=== PATIENT | female | born 1995 | race Two or more races ===

== ENCOUNTER 2017-01-10 19:38 | Emergency (ER) | payer SELFPAY ==
[~2017-01-10 19:38] MED LIST: CEPH-264 PO
[2017-01-10 20:51] LABS: BILIRUBIN,URINE NEGATIVE (NEG); GLUCOSE,URINE NEGATIVE (NEG); NITRITE,URINE POSITIVE (NEG); PROTEIN,URINE NEGATIVE (NEG-TRACE)
[2017-01-10 21:00] LABS: BACTERIA,URINE MANY /HPF (0-FEW); RBC,URINE 0 /HPF (0-2); SQUAMOUS EPITHELIAL CELL,UR MOD /LPF
--- NOTE | 2017-01-10 21:00 | PHYS DOC ---
Past Medical History Past Medical History: No Pertinent History Past Surgical History: No Surgical History Additional Information: Nonsmoker Alcohol Use: None Drug Use: None Adult General Chief Complaint Chief Complaint: VAGINAL PROBLEM HPI HPI Patient is a 21 year old female who presents with low back pain and lower abdominal pain for 3 days. She also reports vaginal discharge. She denies fever , nausea, vomiting, diarrhea, constipation, dysuria, urinary frequency, or hematuria. LMP was 11/15/16. She has irregular menstrual cycles. She is sexually active and does not use condoms or take control. She denies concern for STDs. She is . She does not have a PCP. Review of Systems Review of Systems Constitutional: Denies fever or chills. [] Eyes: Denies change in visual acuity, redness, or eye pain. [] HENT: Denies ear pain, nasal congestion or sore throat. [] Respiratory: Denies cough or shortness of breath. [] Cardiovascular: Denies chest pain, palpitations or edema. [] GI: Denies nausea, vomiting, bloody stools or diarrhea. Reports lower abdominal pain. : Denies dysuria, hematuria or urinary frequency. Reports vaginal discharge. Musculoskeletal: Denies joint pain. Reports low-back pain. Integument: Denies rash or skin lesions. [] Neurologic: Denies headache, focal weakness or sensory changes. [] Endocrine: Denies polyuria or polydipsia. [] Psych: Denies anxiety or depression. [] All systems reviewed and negative unless otherwise stated in the HPI. Allergies Allergies Allergies Coded Allergies Type Severity Reaction Last Updated Verified No Known Drug Allergies 01/10/17 No Physical Exam Physical Exam Constitutional: Well developed, well nourished, no acute distress, non-toxic appearance. [] HENT: Normocephalic, atraumatic, oropharynx moist. [] Eyes: PERRLA, EOMI, conjunctiva normal, no discharge. [] Neck: Normal range of motion, no tenderness, supple, no stridor. [] Cardiovascular: Heart rate regular rhythm, no murmur. [] Lungs & Thorax: Bilateral breath sounds clear to auscultation without wheezes, rales, or rhonchi. [] Abdomen: Bowel sounds normal, soft, diffuse lower abdominal tenderness, no masses, no pulsatile masses. [] Female : ED RN present during exam. Normal external genitalia. There is mild clear discharge in the vagina. There is no cervicitis or CMT. There is no adnexal mass or tenderness. Skin: Warm, dry, no erythema, no rash. [] Back: No midline tenderness, no CVA tenderness. Bilateral lumbar paraspinal tenderness. Extremities: No tenderness, ROM intact, no edema. Distal pulses equal bilaterally. [] Neurologic: Alert and oriented X 3, normal motor function, normal sensory function, no focal deficits noted. [] Psychologic: Affect normal, judgement normal, mood normal. [] Current Patient Data Vital Signs Vital Signs Date Time Temp Pulse Resp B/P Pulse Ox O2 Delivery O2 Flow Rate FiO2 01/10/17 19:48 98.4 80 18 110/59 100 Room Air 98.4 Lab Values Laboratory Tests Test 01/10/17 19:45 Urine Collection Type Unknown Urine Color Yellow Urine Clarity Clear Urine pH 8.0 Urine Specific [place] 1.025 Urine Protein Negativemg/dL (NEG-TRACE) Urine Glucose (UA) Negativemg/dL (NEG) Urine Ketones (Stick) Negativemg/dL (NEG) Urine Blood Negative (NEG) Urine Nitrite Positive (NEG) Urine Bilirubin Negative (NEG) Urine Urobilinogen Dipstick 1.0mg/dL (0.2 mg/dL) Urine Leukocyte Esterase Small (NEG) Urine RBC 0/HPF (0-2) Urine WBC 1-4/HPF (0-4) Urine Squamous Epithelial Cells Mod/LPF Urine Bacteria Many/HPF (0-FEW) Urine Mucus Mod/LPF Microbiology 01/10/17 Wet Prep - Final, Complete WET PREP Final YEAST NONE SEEN TRICHOMONAS NONE SEEN CLUE CELLS NONE SEEN WBCS OCCASIONAL HCG negative EKG EKG [] Radiology/Procedures Radiology/Procedures [] Course & Med Decision Making Course & Med Decision Making Pertinent Labs and Imaging studies reviewed. (See chart for details) [] Dragon Disclaimer Dragon Disclaimer This electronic medical record was generated, in whole or in part, using a voice recognition dictation system. Departure Departure Impression: Primary Impression: UTI (urinary tract infection) Disposition: 01 HOME, SELF-CARE Condition: STABLE Referrals: NO PCP (PCP) Patient Instructions: Urinary Tract Infection, [id number] Additional Instructions: You were seen today for lower abdominal and lower back pain. Your urine shows a urinary tract infection. You pelvic exam did not show yeast or bacterial vaginosis. You were tested for gonorrhea and chlamydia today. You will receive a phone call if your test is positive. Please complete all of the prescribed antibiotic, even if you are feeling better. Please follow up with a primary care provider after completing the antibiotic to recheck your urine to be sure that the infection is gone. If you would like to begin control, [facility] for reduced fees for services. Return to the emergency department if you have any new or concerning symptoms. Scripts Sulfamethoxazole/Trimethoprim (Bactrim Ds Tablet)1 Each Tablet1 Tab PO BID 5 Days Prov:ZOILA IBRAHIM 01/10/17 Problem Qualifiers Primary Impression: UTI (urinary tract infection) Urinary tract infection type: acute cystitis Hematuria presence: without hematuria Qualified Code: N30.00 - Acute cystitis without hematuria ZOILA IBRAHIM Jan 10, 2017 21:00
[2017-01-10] MEDS ORDERED: SULF1TAB24 PO (21:48)
[2017-01-10 22:10] VITALS: BP 116/65
== END 2017-01-10 22:10 | disposition home or self-care (01) ==
LOC: ER 19:38 → MERGE 19:38 → ER 22:10
DX: N30.00 Acute cystitis without hematuria (principal)
CPT/HCPCS: 81001; 81025; 87086; 87491; 87591; 99284; Q0111

== ENCOUNTER 2017-07-20 21:22 | Emergency (ER) | payer SELFPAY ==
[~2017-07-20] VITALS: Ht 154.9 cm; Wt 61.2 kg
[~2017-07-20 21:22] MED LIST changes: +SULF1TAB24 PO
[2017-07-20 21:50] LABS: BILIRUBIN,URINE NEGATIVE (NEG); GLUCOSE,URINE NEGATIVE (NEG); NITRITE,URINE POSITIVE (NEG); PH,URINE 6.5; PROTEIN,URINE NEGATIVE (NEG-TRACE)
[2017-07-20 21:56] LABS: BACTERIA,URINE MANY /HPF (0-FEW); RBC,URINE 0 /HPF (0-2); SQUAMOUS EPITHELIAL CELL,UR MOD /LPF
[2017-07-20 22:09] LABS: BASO # 0.1 x10^3/uL (0.0-0.2); BASO % 1 % (0-3); EOS % 2 % (0-3); HEMATOCRIT 39.4 % (36.0-47.0); HEMOGLOBIN 13.1 g/dL (12.0-15.5); LYMPH # 2.4 x10^3/uL (1.0-4.8); LYMPH % 26 % (24-48); MEAN CORPUSCULAR HEMOGLOBIN 29 pg (25-35); MEAN CORPUSCULAR HGB CONC 33 g/dL (31-37); MEAN CORPUSCULAR VOLUME 86 fL (79-100); MONO % 7 % (0-9); NEUT % 63 % (31-73); PLATELET COUNT 317 x10^3/uL (140-400); RED BLOOD COUNT 4.58 x10^6/uL (3.50-5.40); WHITE BLOOD COUNT 9.2 x10^3/uL (4.0-11.0)
[2017-07-20 22:20] LABS: CREATININE 0.7 mg/dL (0.6-1.0); GFR 104.6
[2017-07-20 22:25] LABS: ALBUMIN 3.6 g/dL (3.4-5.0); ALBUMIN/GLOBULIN RATIO 0.8 (1.0-1.7); TOTAL BILIRUBIN 0.2 mg/dL (0.2-1.0)
--- NOTE | 2017-07-20 23:36 | PHYS DOC ---
Past Medical History Past Medical History: No Pertinent History Past Surgical History: No Surgical History Alcohol Use: None Drug Use: None Adult General Chief Complaint Chief Complaint: ABDOMINAL PAIN IN HPI HPI Patient is a 22 year old G4, P3 who presents with estimated a week gestation who presents with suprapubic pain for the past 4 days. Symptoms are rated mild to moderate. Patient denies urinary frequency urgency and dysuria. Reports vaginal discharge which is normal. Patient denies exposure concern for STD. No flank pain, history of kidney stones. Denies nausea or vomiting. No upper abdominal pain. No other acute symptoms or complaints. Not yet obtained care. Last menstrual period was approximately 10 weeks ago. Patient had a positive home test 3 weeks ago. Review of Systems Review of Systems Review symptoms as per history of present illness. All other review symptoms are negative. Allergies Allergies Allergies Coded Allergies Type Severity Reaction Last Updated Verified No Known Drug Allergies 08/29/16 No Physical Exam Physical Exam Constitutional: Well developed, well nourished, no acute distress, non-toxic appearance. [] HENT: Normocephalic, atraumatic, bilateral external ears normal, oropharynx moist, no oral exudates, nose normal. [] Eyes: PERRLA, EOMI, conjunctiva normal, no discharge. [] Neck: Normal range of motion, no tenderness, supple, no stridor. [] Cardiovascular:Heart rate regular rhythm, no murmur [] Lungs & Thorax: Bilateral breath sounds clear to auscultation [] Abdomen: Bowel sounds normal, soft, mild suprapubic pain,, tenderness.. [] : [External genitalia, normal, extremely discharge, no CMT, cervix closed. No bleeding or lesions.] Back: No tenderness, no CVA tenderness. [] Extremities: No tenderness, no cyanosis, no clubbing, ROM intact, no edema. [] Neurologic: Alert and oriented X 3, normal motor function, normal sensory function, no focal deficits noted. [] Psychologic: Affect normal, judgement normal, mood normal. [] Current Patient Data Vital Signs Vital Signs Date Time Temp Pulse Resp B/P (MAP) Pulse Ox O2 Delivery O2 Flow Rate FiO2 07/21/17 01:00 87 20 122/77 (92) 99 Room Air 07/20/17 21:35 98.0 98.0 Lab Values Laboratory Tests Test 07/20/17 20:52 07/20/17 21:40 07/20/17 22:00 POC Urine HCG, Qualitative Hcg positive (Negative) Urine Collection Type Unknown Urine Color Yellow Urine Clarity Clear Urine pH 6.5 Urine Specific [place] 1.015 Urine Protein Negative mg/dL (NEG-TRACE) Urine Glucose (UA) Negative mg/dL (NEG) Urine Ketones (Stick) Negative mg/dL (NEG) Urine Blood Negative (NEG) Urine Nitrite Positive (NEG) Urine Bilirubin Negative (NEG) Urine Urobilinogen Dipstick 1.0 mg/dL (0.2 mg/dL) Urine Leukocyte Esterase Trace (NEG) Urine RBC 0 /HPF (0-2) Urine WBC 1-4 /HPF (0-4) Urine Squamous Epithelial Cells Mod /LPF Urine Bacteria Many /HPF (0-FEW) Urine Mucus Mod /LPF White Blood Count 9.2 x10^3/uL (4.0-11.0) Red Blood Count 4.58 x10^6/uL (3.50-5.40) Hemoglobin 13.1 g/dL (12.0-15.5) Hematocrit 39.4 % (36.0-47.0) Mean Corpuscular Volume 86 fL (79-100) Mean Corpuscular Hemoglobin 29 pg (25-35) Mean Corpuscular Hemoglobin Concent 33 g/dL (31-37) Red Cell Distribution Width 14.0 % (11.5-14.5) Platelet Count 317 x10^3/uL (140-400) Neutrophils (%) (Auto) 63 % (31-73) Lymphocytes (%) (Auto) 26 % (24-48) Monocytes (%) (Auto) 7 % (0-9) Eosinophils (%) (Auto) 2 % (0-3) Basophils (%) (Auto) 1 % (0-3) Neutrophils # (Auto) 5.8 x10^3uL (1.8-7.7) Lymphocytes # (Auto) 2.4 x10^3/uL (1.0-4.8) Monocytes # (Auto) 0.7 x10^3/uL (0.0-1.1) Eosinophils # (Auto) 0.2 x10^3/uL (0.0-0.7) Basophils # (Auto) 0.1 x10^3/uL (0.0-0.2) Maternal Serum HCG Beta Subunit 367007 mIU/mL (0-5) H Sodium Level 138 mmol/L (136-145) Potassium Level 4.0 mmol/L (3.5-5.1) Chloride Level 102 mmol/L (98-107) Carbon Dioxide Level 25 mmol/L (21-32) Anion Gap 11 (6-14) Blood Urea Nitrogen 6 mg/dL (7-20) L Creatinine 0.7 mg/dL (0.6-1.0) Estimated GFR (Cockcroft-Gault) 104.6 BUN/Creatinine Ratio 9 (6-20) Glucose Level 96 mg/dL (70-99) Calcium Level 9.0 mg/dL (8.5-10.1) Total Bilirubin 0.2 mg/dL (0.2-1.0) Aspartate Amino Transferase (AST) 13 U/L (15-37) L Alanine Aminotransferase (ALT) 19 U/L (14-59) Alkaline Phosphatase 70 U/L (46-116) Total Protein 8.0 g/dL (6.4-8.2) Albumin 3.6 g/dL (3.4-5.0) Albumin/Globulin Ratio 0.8 (1.0-1.7) L Laboratory Tests 07/20/17 22:00 Laboratory Tests 07/20/17 22:00 Microbiology 07/20/17 Wet Prep - Final, Complete EKG EKG [] Radiology/Procedures Radiology/Procedures [OB ultrasound: Viable 9 week 1 day IUP, possible area of subchorionic hemorrhage.] Course & Med Decision Making Course & Med Decision Making Pertinent Labs and Imaging studies reviewed. (See chart for details) [Pelvic pain in possible subchorionic hemorrhage causing patient's symptoms. Recommend supportive care OB follow-up. Return precautions reviewed] Dragon Disclaimer Dragon Disclaimer This electronic medical record was generated, in whole or in part, using a voice recognition dictation system. Departure Departure Impression: Primary Impression: Abdominal pain during in first trimester Condition: GOOD Referrals: NO PCP (PCP) JS AVENDANO DO Jul 20, 2017 23:36
--- NOTE | 2017-07-20 23:59 | RAD ---
Examination: Obstetric ultrasound. HISTORY: History of cramping COMPARISON: None available FINDINGS: The uterus measures 11.3 x 8.1 x 6.0 cm. Cervical length measures 3.8 cm. The right ovary measures 2.7 x 2.7 x 1.2 cm. The left ovary measures 2.4 x 2.8 x 0.9 cm. Blood flow identified in the right and left ovaries. Intrauterine gestational sac identified. pole identified within the gestation sac with heart rate of 171 bpm The crown-rump length measures 2.5 cm corresponding to 9 weeks and 1 day. 2.5 cm heterogeneous density identified in the subchorionic region likely a small subchorionic bleed. LMP 05/08/2017 Clinical age 10 weeks and 3 days with expected date of delivery by LMP 02/12/2018. Ultrasound age is 9 weeks and 1 day with expected date of delivery by ultrasound 02/21/2018. IMPRESSION: 1. Single living intrauterine with heart rate of 171 bpm. 2. 2.5 cm heterogeneous echogenicity identified in the subchorionic region probably small subchorionic bleed. Electronically signed by: Ulises Schwartz MD (07/20/2017 11:56 PM) [facility]
[2017-07-21 01:00] VITALS: BP 122/77
--- NOTE | 2017-07-24 10:09 | VNOTE ---
CALL BACK NOTE CALL BACK Microbiology 07/20/17 Wet Prep - Final, Complete 07/20/17 Urine Culture - Final, Complete 07/20/17 Urine Culture Result 1 (ELKE) - Final, Complete 07/20/17 Antimicrobic Susceptibility - Final, Complete Attempted to contact patient at phone number [phone] to patient's urine was positive for Escherichia coli. She was covered with any antibiotics patient is . This Macrobid 100 mg 1 tablet twice day for the next 7 days was going to be prescribed to the patient however she has a voicemail box that has not been set up yet. This information will be provided to the charge nurse, KRYSTIN Gerard. I did not see or treat this patient. I am signing this note administratively. KIMBERLEY REDDING APRN Jul 24, 2017 10:09 CY BRITO MD Jul 25, 2017 07:52
--- NOTE | 2017-07-26 11:48 | VNOTE ---
CALL BACK NOTE CALL BACK Microbiology 07/20/17 Wet Prep - Final, Complete 07/20/17 Urine Culture - Final, Complete 07/20/17 Urine Culture Result 1 (ELKE) - Final, Complete 07/20/17 Antimicrobic Susceptibility - Final, Complete Attempted to contact patient at [phone]. Patient's STD was positive for chlamydia. She was not treated here in the emergency department. Patient is . She will need to have Zithromax called and once we are able to obtain information. Culture results will be passed on to the charge nurse, KRYSTIN Tapia. KIMBERLEY REDDING APRN Jul 26, 2017 11:48
== END 2017-07-21 01:00 | disposition home or self-care (01) ==
LOC: ER 21:22
DX: O26.891 Other specified pregnancy related conditions, first trimester (principal); R10.30 Lower abdominal pain, unspecified; N89.8 Other specified noninflammatory disorders of vagina; Z3A.09 9 weeks gestation of pregnancy
CPT/HCPCS: 36415; 76801; 80053; 81001; 81025; 84702; 85025; 87086; 99285; Q0111; 87186; 87491; 87591

== ENCOUNTER 2017-08-29 19:44 | Emergency (ER) | payer SELFPAY ==
[~2017-08-29] VITALS: Ht 157.5 cm; Wt 61.2 kg
--- NOTE | 2017-08-29 19:54 | PHYS DOC ---
Past Medical History Past Medical History: No Pertinent History Past Surgical History: No Surgical History Alcohol Use: None Drug Use: None Adult General Chief Complaint Chief Complaint: ABDOMINAL PAIN HPI HPI Patient is a 22 year old female who presents with child bleeding with . She states she's approximate 14 weeks she has not had any care as of yet. She was in [place] and 3 days ago she started having back pain and then the She started having bleeding. She states is less than her normal period but is still going on. She came back from [place] today and presents to ER. She denies any fevers chills. She is a G 4 P 3 Review of Systems Review of Systems Constitutional: Denies fever or chills [] Eyes: Denies change in visual acuity, redness, or eye pain [] HENT: Denies nasal congestion or sore throat [] Respiratory: Denies cough or shortness of breath [] Cardiovascular: No additional information not addressed in HPI [] GI: Denies abdominal pain, nausea, vomiting, bloody stools or diarrhea [] : Denies dysuria or hematuria [] Musculoskeletal: Denies back pain or joint pain [] Integument: Denies rash or skin lesions [] Neurologic: Denies headache, focal weakness or sensory changes [] Endocrine: Denies polyuria or polydipsia [] Current Medications Current Medications Current Medications Medications (Trade) Dose Ordered Sig/[facility] Start Time Stop Time Status Last Admin Dose Admin Morphine Sulfate 2 mg 1X ONCE 08/29/17 22:00 08/29/17 22:01 DC 08/29/17 22:06 2 MG Potassium Chloride (Klor-Con) 40 meq 1X ONCE 08/29/17 23:00 08/29/17 23:01 DC 08/29/17 22:51 40 MEQ Allergies Allergies Allergies Coded Allergies Type Severity Reaction Last Updated Verified No Known Drug Allergies 08/29/16 No Physical Exam Physical Exam Constitutional: Well developed, well nourished, no acute distress, non-toxic appearance. [] HENT: Normocephalic, atraumatic, bilateral external ears normal, oropharynx moist, no oral exudates, nose normal. [] Eyes: PERRLA, EOMI, conjunctiva normal, no discharge. [] Neck: Normal range of motion, no tenderness, supple, no stridor. [] Cardiovascular:Heart rate regular rhythm, no murmur [] Lungs & Thorax: Bilateral breath sounds clear to auscultation [] Abdomen/pelvic exam: Bowel sounds normal, soft, no tenderness, no masses, no pulsatile masses. Pelvic Exam: Pst Specialist present Abdomen: Nontender External Genitalia: Normal Skin Speculum: Normal vaginal mucosa, minimal blood in the vault Bimanual: No adnexal masses or tenderness, No CMT Skin: Warm, dry, no erythema, no rash. [] Back: No tenderness, no CVA tenderness. [] Extremities: No tenderness, no cyanosis, no clubbing, ROM intact, no edema. [] Neurologic: Alert and oriented X 3, normal motor function, normal sensory function, no focal deficits noted. [] Psychologic: Affect normal, judgement normal, mood normal. [] Current Patient Data Vital Signs Vital Signs Date Time Temp Pulse Resp B/P (MAP) Pulse Ox O2 Delivery O2 Flow Rate FiO2 08/29/17 22:06 99 Room Air 08/29/17 20:00 98.7 120 20 125/70 (88) 98.7 Lab Values Laboratory Tests Test 08/29/17 19:50 08/29/17 20:10 08/29/17 20:11 Urine Collection Type Unknown Urine Color Yellow Urine Clarity Cloudy Urine pH 6.0 Urine Specific [place] 1.015 Urine Protein Negative mg/dL (NEG-TRACE) Urine Glucose (UA) Negative mg/dL (NEG) Urine Ketones (Stick) Negative mg/dL (NEG) Urine Blood Large (NEG) Urine Nitrite Negative (NEG) Urine Bilirubin Negative (NEG) Urine Urobilinogen Dipstick 0.2 mg/dL (0.2 mg/dL) Urine Leukocyte Esterase Small (NEG) Urine RBC 3-5 /HPF (0-2) Urine WBC 1-4 /HPF (0-4) Urine Squamous Epithelial Cells Mod /LPF Urine Bacteria Moderate /HPF (0-FEW) Urine Mucus Marked /LPF White Blood Count 9.1 x10^3/uL (4.0-11.0) Red Blood Count 3.87 x10^6/uL (3.50-5.40) Hemoglobin 11.3 g/dL (12.0-15.5) L Hematocrit 33.2 % (36.0-47.0) L Mean Corpuscular Volume 86 fL (79-100) Mean Corpuscular Hemoglobin 29 pg (25-35) Mean Corpuscular Hemoglobin Concent 34 g/dL (31-37) Red Cell Distribution Width 13.2 % (11.5-14.5) Platelet Count 290 x10^3/uL (140-400) Neutrophils (%) (Auto) 68 % (31-73) Lymphocytes (%) (Auto) 24 % (24-48) Monocytes (%) (Auto) 5 % (0-9) Eosinophils (%) (Auto) 1 % (0-3) Basophils (%) (Auto) 1 % (0-3) Neutrophils # (Auto) 6.2 x10^3uL (1.8-7.7) Lymphocytes # (Auto) 2.2 x10^3/uL (1.0-4.8) Monocytes # (Auto) 0.5 x10^3/uL (0.0-1.1) Eosinophils # (Auto) 0.1 x10^3/uL (0.0-0.7) Basophils # (Auto) 0.1 x10^3/uL (0.0-0.2) Prothrombin Time 12.3 SEC (11.7-14.0) Prothrombin Time INR 1.0 (0.8-1.1) PTT 29 SEC (24-38) Maternal Serum HCG Beta Subunit 4562 mIU/mL (0-5) H Sodium Level 141 mmol/L (136-145) Potassium Level 3.1 mmol/L (3.5-5.1) L Chloride Level 105 mmol/L (98-107) Carbon Dioxide Level 26 mmol/L (21-32) Anion Gap 10 (6-14) Blood Urea Nitrogen 6 mg/dL (7-20) L Creatinine 0.6 mg/dL (0.6-1.0) Estimated GFR (Cockcroft-Gault) 125.0 Glucose Level 87 mg/dL (70-99) Calcium Level 9.1 mg/dL (8.5-10.1) POC Urine HCG, Qualitative Hcg positive (Negative) Laboratory Tests 08/29/17 20:10 Laboratory Tests 08/29/17 20:10 Microbiology 08/29/17 Wet Prep - Final, Complete Laboratory Tests Test 08/29/17 19:50 08/29/17 20:10 08/29/17 20:11 Urine Collection Type Unknown Urine Color Yellow Urine Clarity Cloudy Urine pH 6.0 Urine Specific [place] 1.015 Urine Protein Negative mg/dL (NEG-TRACE) Urine Glucose (UA) Negative mg/dL (NEG) Urine Ketones (Stick) Negative mg/dL (NEG) Urine Blood Large (NEG) Urine Nitrite Negative (NEG) Urine Bilirubin Negative (NEG) Urine Urobilinogen Dipstick 0.2 mg/dL (0.2 mg/dL) Urine Leukocyte Esterase Small (NEG) Urine RBC 3-5 /HPF (0-2) Urine WBC 1-4 /HPF (0-4) Urine Squamous Epithelial Cells Mod /LPF Urine Bacteria Moderate /HPF (0-FEW) Urine Mucus Marked /LPF White Blood Count 9.1 x10^3/uL (4.0-11.0) Red Blood Count 3.87 x10^6/uL (3.50-5.40) Hemoglobin 11.3 g/dL (12.0-15.5) L Hematocrit 33.2 % (36.0-47.0) L Mean Corpuscular Volume 86 fL (79-100) Mean Corpuscular Hemoglobin 29 pg (25-35) Mean Corpuscular Hemoglobin Concent 34 g/dL (31-37) Red Cell Distribution Width 13.2 % (11.5-14.5) Platelet Count 290 x10^3/uL (140-400) Neutrophils (%) (Auto) 68 % (31-73) Lymphocytes (%) (Auto) 24 % (24-48) Monocytes (%) (Auto) 5 % (0-9) Eosinophils (%) (Auto) 1 % (0-3) Basophils (%) (Auto) 1 % (0-3) Neutrophils # (Auto) 6.2 x10^3uL (1.8-7.7) Lymphocytes # (Auto) 2.2 x10^3/uL (1.0-4.8) Monocytes # (Auto) 0.5 x10^3/uL (0.0-1.1) Eosinophils # (Auto) 0.1 x10^3/uL (0.0-0.7) Basophils # (Auto) 0.1 x10^3/uL (0.0-0.2) Prothrombin Time 12.3 SEC (11.7-14.0) Prothrombin Time INR 1.0 (0.8-1.1) PTT 29 SEC (24-38) Maternal Serum HCG Beta Subunit 4562 mIU/mL (0-5) H Sodium Level 141 mmol/L (136-145) Potassium Level 3.1 mmol/L (3.5-5.1) L Chloride Level 105 mmol/L (98-107) Carbon Dioxide Level 26 mmol/L (21-32) Anion Gap 10 (6-14) Blood Urea Nitrogen 6 mg/dL (7-20) L Creatinine 0.6 mg/dL (0.6-1.0) Estimated GFR (Cockcroft-Gault) 125.0 Glucose Level 87 mg/dL (70-99) Calcium Level 9.1 mg/dL (8.5-10.1) POC Urine HCG, Qualitative Hcg positive (Negative) Laboratory Tests 08/29/17 20:10 Laboratory Tests 08/29/17 20:10 Microbiology 08/29/17 Wet Prep - Final, Complete EKG EKG [] Radiology/Procedures Radiology/Procedures RUN DATE: 08/29/17 PAGE 1 RUN TIME: 2113 [facility] [address] [place] [address] Son Lemus M.D., Designated Broker PATIENT: MATY PERDOMO ACCT: [id number] LOC: JENNIFER U : [id number] AGE/SX: ROOM: REG : 08/29/[address]: DESTINY FIGUEROA MD : 1995 BED: DIS : STATUS: REG ER TLOC: SPEC #: [id number] VILLA: 08/29/17 STATUS: COMP REQ #: [id number] RECD: 08/29/[address]: DESTINY FIGUEROA MD SOURCE: VAGINAL ENTR: 08/29/[address]: JUAN JOSE FINN SPDESC: ORDERED: WET PREP COMMENTS: Has specimen been collected/obtained? Y Procedure Result WET PREP Final YEAST NONE SEEN TRICHOMONAS NONE SEEN CLUE CELLS CLUE CELLS PRESENT WBCS FEW [facility] [address] [place] [address] IMAGING REPORT Signed PATIENT: MATY PERDOMO ACCOUNT: [id number] : 1995 LOCATION: ER AGE: 22 SEX: F EXAM STATUS: REG ER ORD. PHYSICIAN: DESTINY FIGUEROA MD REASON: vaginal bleeding PROCEDURE: OB < 14 WKS Early OB ultrasound History: Vaginal bleeding. Possible miscarriage. Comparison: Ultrasound OB July 20, 2017. Technique: Transabdominal imaging was performed. Findings: No intrauterine is identified. Uterus measures 10.3 cm in length. The endometrium is thickened and heterogeneous measuring up to 32 mm in thickness. Left ovary measures 2.7 x 1.3 x 1.3 cm and is unremarkable. Right ovary measures 3.1 x 2.6 x 2.2 cm and is unremarkable. Both ovaries demonstrate normal vascular flow upon Doppler interrogation and are without evidence of torsion. No adnexal masses are seen. Impression: 1. No intrauterine is identified. As previous study demonstrated intrauterine , findings would indicate a completed spontaneous . 2. Endometrium is thickened and heterogeneous. Although nonspecific, findings may indicate products of conception. Electronically signed by: Misha Ruelas MD (08/29/2017 10:23 PM) [facility] DICTATED and SIGNED BY: MISHA RUELAS MD DATE: 08/29/172219 CC: DESTINY FIGUEROA MD; NO PCP ~ Impressions: Miscarriage UTI Hypokalemia Course & Med Decision Making Course & Med Decision Making Pertinent Labs and Imaging studies reviewed. (See chart for details) Ultrasound indicates spontaneous miscarriage. Her quantitative does not match her dates therefore she has likely miscarried. She will need to follow-up with Dr. Pope. Her potassium was replaced and she's been discharged with Keflex 500 mg every 6 hours 10 days, since she can't afford Macrobid. She is to follow -up with Dr. Pope within next 4-5 days. Return precautions given for increasing vaginal bleeding, discharge, other concerns. Dragon Disclaimer Dragon Disclaimer This electronic medical record was generated, in whole or in part, using a voice recognition dictation system. Departure Departure Impression: Primary Impression: UTI (urinary tract infection) Additional Impression: Miscarriage Disposition: HOME, SELF-CARE Condition: STABLE Referrals: NO PCP (PCP) TRICIA POPE DO Patient Instructions: Miscarriage Additional Instructions: The ultrasound appears that you've miscarried. You will need to follow-up with MOVING PICTURE OPERATOR. Please call Dr. Pope's office and schedule follow-up appointment. Your potassium was slightly low and this was replaced. You'll also have a bladder infection when you will need to take antibiotics for the next 10 days. If you develop severe abdominal pain, increased vaginal bleeding, lightheadedness, dizziness, or other concerns please return back to emergency department. Scripts Nitrofurantoin Monohyd/M-Cryst (MACROBID 100 MG CAPSULE) 100 Mg Capsule 1 CAP PO BID, #20 CAP Prov: DESTINY FIGUEROA MD 08/29/17 Problem Qualifiers Primary Impression: UTI (urinary tract infection) Urinary tract infection type: acute cystitis Hematuria presence: without hematuria Qualified Codes: N30.00 - Acute cystitis without hematuria DESTINY FIGUEROA MD Aug 29, 2017 19:54
[2017-08-29 20:16] LABS: BILIRUBIN,URINE NEGATIVE (NEG); GLUCOSE,URINE NEGATIVE (NEG); NITRITE,URINE NEGATIVE (NEG); PROTEIN,URINE NEGATIVE (NEG-TRACE); UROBILINOGEN,URINE 0.2 mg/dL (0.2 mg/dL)
[2017-08-29 20:26] LABS: BACTERIA,URINE MODERATE /HPF (0-FEW); SQUAMOUS EPITHELIAL CELL,UR MOD /LPF
[2017-08-29 20:26] LABS: BASO # 0.1 x10^3/uL (0.0-0.2); BASO % 1 % (0-3); EOS % 1 % (0-3); HEMATOCRIT 33.2 % (36.0-47.0); HEMOGLOBIN 11.3 g/dL (12.0-15.5); LYMPH # 2.2 x10^3/uL (1.0-4.8); LYMPH % 24 % (24-48); MEAN CORPUSCULAR HEMOGLOBIN 29 pg (25-35); MEAN CORPUSCULAR HGB CONC 34 g/dL (31-37); MEAN CORPUSCULAR VOLUME 86 fL (79-100); MONO % 5 % (0-9); NEUT % 68 % (31-73); PLATELET COUNT 290 x10^3/uL (140-400); RED BLOOD COUNT 3.87 x10^6/uL (3.50-5.40); RED CELL DISTRIBUTION WIDTH 13.2 % (11.5-14.5); WHITE BLOOD COUNT 9.1 x10^3/uL (4.0-11.0)
[2017-08-29 20:35] LABS: PROTHROMBIN TIME PATIENT 12.3 SEC (11.7-14.0)
[2017-08-29 20:38] LABS: CALCIUM 9.1 mg/dL (8.5-10.1); CREATININE 0.6 mg/dL (0.6-1.0); POTASSIUM 3.1 mmol/L (3.5-5.1)
[2017-08-29] MEDS ORDERED: MORPHINE SULFATE 2 MG/ML DISP.SYRIN. IV ONE (22:00)
--- NOTE | 2017-08-29 22:27 | RAD ---
Early OB ultrasound History: Vaginal bleeding. Possible miscarriage. Comparison: Ultrasound OB July 20, 2017. Technique: Transabdominal imaging was performed. Findings: No intrauterine is identified. Uterus measures 10.3 cm in length. The endometrium is thickened and heterogeneous measuring up to 32 mm in thickness. Left ovary measures 2.7 x 1.3 x 1.3 cm and is unremarkable. Right ovary measures 3.1 x 2.6 x 2.2 cm and is unremarkable. Both ovaries demonstrate normal vascular flow upon Doppler interrogation and are without evidence of torsion. No adnexal masses are seen. Impression: 1. No intrauterine is identified. As previous study demonstrated intrauterine , findings would indicate a completed spontaneous . 2. Endometrium is thickened and heterogeneous. Although nonspecific, findings may indicate products of conception. Electronically signed by: Misha Sandra MD (08/29/2017 10:23 PM) [facility]
[2017-08-29] MEDS ORDERED: NITR100C62 PO (22:44)
[2017-08-29 23:00] VITALS: BP 116/61
[2017-08-29] MEDS ORDERED: POTASSIUM CHLORIDE 20 MEQ TABLET.ER. PO ONE (23:00)
== END 2017-08-29 23:30 | disposition home or self-care (01) ==
LOC: ER 19:44
DX: O03.9 Complete or unspecified spontaneous abortion without complication (principal); N30.00 Acute cystitis without hematuria; E87.6 Hypokalemia; Z3A.14 14 weeks gestation of pregnancy
CPT/HCPCS: 36415; 76801; 80048; 81001; 81025; 84702; 85025; 85610; 85730; 86900; 86901; 87086; 87491; 87591; 96374; 99285; J2270; Q0111

== ENCOUNTER 2018-03-21 20:36 | Emergency (ER) | payer OTHER ==
[2018-03-21 21:01] LABS: URINE HCG POC HCG NEGATIVE (Negative)
[2018-03-21 21:03] LABS: BILIRUBIN,URINE NEGATIVE (NEG); CLARITY,URINE CLEAR; COLOR,URINE YELLOW; GLUCOSE,URINE NEGATIVE (NEG); NITRITE,URINE NEGATIVE (NEG); PH,URINE 5.5; PROTEIN,URINE NEGATIVE (NEG-TRACE); UROBILINOGEN,URINE 0.2 mg/dL (0.2 mg/dL)
[2018-03-21 21:12] LABS: BACTERIA,URINE MOD /HPF (0-FEW); RBC,URINE 0 /HPF (0-2); SQUAMOUS EPITHELIAL CELL,UR MANY /LPF; WBC,URINE >40 /HPF (0-4); YEAST,URINE PRESENT /HPF
== END 2018-03-21 21:45 | disposition home or self-care (01) ==
LOC: ER 20:36
DX: N39.0 Urinary tract infection, site not specified (principal); B37.9 Candidiasis, unspecified
CPT/HCPCS: 81001; 81025; 87491; 87591; 99284

== ENCOUNTER 2018-06-03 22:10 | Emergency (ER) | payer OTHER ==
[2018-06-03 22:50] LABS: BILIRUBIN,URINE NEGATIVE (NEG); CLARITY,URINE CLEAR; COLOR,URINE YELLOW; GLUCOSE,URINE NEGATIVE (NEG); NITRITE,URINE NEGATIVE (NEG); PH,URINE 5.5; PROTEIN,URINE NEGATIVE (NEG-TRACE); UROBILINOGEN,URINE 0.2 mg/dL (0.2 mg/dL)
[2018-06-03 22:57] LABS: BACTERIA,URINE MANY /HPF (0-FEW); RBC,URINE 0 /HPF (0-2); SQUAMOUS EPITHELIAL CELL,UR MOD /LPF
[2018-06-03] MEDS: cefTRIAXone IM 250 MG VIAL IM (23:34)
[2018-06-03] MEDS: AZITHROMYCIN 250 MG TABLET. PO (23:35)
[2018-06-05 14:37] LABS: CHLAMYDIA PROBE Negative (Negative); GC PROBE Negative (Negative)
== END 2018-06-03 23:49 | disposition home or self-care (01) ==
LOC: ER 22:10
DX: N30.00 Acute cystitis without hematuria (principal); R10.2 Pelvic and perineal pain
CPT/HCPCS: 81001; 87086; 87491; 87591; 96372; 99284-25; J0696; Q0111; Q0144

== ENCOUNTER 2018-10-09 20:58 | Emergency (ER) | payer SELFPAY ==
[2018-06-03 22:20] VITALS: BP 118/55
[~2018-10-09] VITALS: Ht 154.9 cm; Wt 63.5 kg
[~2018-10-09 20:58] MED LIST changes: +FLUC150T PO; +NITR100C62 PO; +PHEN-318 PO
[2018-10-09] MEDS ORDERED: DOXY100T9 PO (23:30)
--- NOTE | 2018-10-09 23:31 | PHYS DOC ---
Past Medical History Past Medical History: Seizure Past Surgical History: No Surgical History Alcohol Use: Occasionally Drug Use: None Adult General Chief Complaint Chief Complaint: FOREIGN BODY VAGINA HPI HPI Patient is a 23 year old female who presents with all a tampon stuck in her vaginal canal for 2 days. Patient states she started to have a foul smelling odor and having some low mid abdominal pain. Patient denies vaginal discharge or bleeding. Review of Systems Review of Systems Constitutional: Denies fever or chills [] Eyes: Denies change in visual acuity, redness, or eye pain [] HENT: Denies nasal congestion or sore throat [] Respiratory: Denies cough or shortness of breath [] Cardiovascular: No additional information not addressed in HPI [] GI: Low mid abdominal pain. Denies nausea, vomiting, bloody stools or diarrhea [ ] : Tampon stuck in vaginal canal 2 days. Denies dysuria or hematuria [] Musculoskeletal: Denies back pain or joint pain [] Integument: Denies rash or skin lesions [] Neurologic: Denies headache, focal weakness or sensory changes [] Endocrine: Denies polyuria or polydipsia [] All other systems were reviewed and found to be within normal limits, except as documented in this note. Allergies Allergies Allergies Coded Allergies Type Severity Reaction Last Updated Verified No Known Drug Allergies 08/29/16 No Physical Exam Physical Exam Constitutional: Well developed, well nourished, no acute distress, non-toxic appearance. [] HENT: Normocephalic, atraumatic, bilateral external ears normal, oropharynx moist, no oral exudates, nose normal. [] Eyes: PERRLA, EOMI, conjunctiva normal, no discharge. [] Neck: Normal range of motion, no tenderness, supple, no stridor. [] Cardiovascular:Heart rate regular rhythm, no murmur [] Lungs & Thorax: Bilateral breath sounds clear to auscultation [] Abdomen: Bowel sounds normal, soft, low mid tenderness, no masses, no pulsatile masses. [] Skin: Warm, dry, no erythema, no rash. [] Back: No tenderness, no CVA tenderness. [] Extremities: No tenderness, no cyanosis, no clubbing, ROM intact, no edema. [] Neurologic: Alert and oriented X 3, normal motor function, normal sensory function, no focal deficits noted. [] Psychologic: Affect normal, judgement normal, mood normal. [] Current Patient Data Lab Values Laboratory Tests Test 10/09/18 22:28 POC Urine HCG, Qualitative Hcg negative (Negative) EKG EKG [] Radiology/Procedures Radiology/Procedures [] Course & Med Decision Making Course & Med Decision Making Patient is a 23 year old female who presents with all a tampon stuck in her vaginal canal for 2 days. Patient states she started to have a foul smelling odor and having some low mid abdominal pain. Patient denies vaginal discharge or bleeding. Patient denies any nausea or vomiting. Denies any dysuria. Abdomen is soft and slightly tender with palpation to low mid abdomen. A pelvic exam is done and a tampon is removed. The patient's cervical os is reddened but there is no bleeding. Patient has no cervical motion tenderness. Patient states all the pain is gone once I removed the tampon. Patient is placed on doxycycline antibiotic and to follow-up with her primary care if needed. Afebrile. Pelvic Exam: Solutions Executive [employer] present Abdomen: Nontender External Genitalia: Normal Skin Speculum: Tampon in place, Normal vaginal mucosa, normal cervical discharge Bimanual: No adnexal masses or tenderness, No CMT Dragon Disclaimer Dragon Disclaimer This electronic medical record was generated, in whole or in part, using a voice recognition dictation system. Departure Departure Impression: Primary Impression: Foreign body in vagina Disposition: 01 HOME, SELF-CARE Condition: STABLE Referrals: NO PCP (PCP) Patient Instructions: Vaginal Foreign Body-Brief Additional Instructions: Follow up with your primary care if needed. Take antibiotic as prescribed. Scripts Doxycycline Hyclate (DOXYCYCLINE HYCLATE) 100 Mg Tablet. 1 TAB PO BID, #14 TAB Prov: KIMBERLEY KUMAR APRN 10/09/18 Attending Signature Attending Signature I have reviewed the PA/LEAF TINNER's note and plan of care. I was available for consultation as needed during the patient's visit in the emergency department. I agree with the clinical impression, plan, and disposition. Problem Qualifiers Primary Impression: Foreign body in vagina Encounter type: initial encounter Qualified Codes: T19.2XXA - Foreign body in vulva and vagina, initial encounter KIMBERLEY KUMAR APRN Oct 09, 2018 23:31 SNEHA SHAH DO Oct 10, 2018 02:12
== END 2018-10-09 23:35 | disposition home or self-care (01) ==
LOC: ER 20:58
DX: T19.2XXA Foreign body in vulva and vagina, initial encounter (principal); X58.XXXA Exposure to other specified factors, initial encounter; Y93.89 Activity, other specified; Y92.89 Other specified places as the place of occurrence of the external cause; Y99.8 Other external cause status
CPT/HCPCS: 81025; 99284

== ENCOUNTER 2019-11-02 19:36 | Emergency (ER) | payer OTHER ==
[2018-06-03 22:20] VITALS: BP 118/55
[~2019-11-02] VITALS: Ht 154.9 cm; Wt 59.0 kg
[~2019-11-02 19:36] MED LIST changes: +DOXY-96 PO
[2019-11-02 19:55] LABS: BILIRUBIN,URINE NEGATIVE (NEG); CLARITY,URINE CLEAR; COLOR,URINE YELLOW; NITRITE,URINE NEGATIVE (NEG); PROTEIN,URINE NEGATIVE (NEG-TRACE)
[2019-11-02 20:10] LABS: AMORPHOUS SEDIMENT,UR PRESENT /HPF; BACTERIA,URINE FEW /HPF (0-FEW); RBC,URINE OCC /HPF (0-2); SQUAMOUS EPITHELIAL CELL,UR MANY /LPF
--- NOTE | 2019-11-02 21:03 | RAD ---
EXAM: Obstetric sonogram. HISTORY: Cramping and bleeding. TECHNIQUE: Sonographic imaging of a gravid uterus was performed. COMPARISON: 08/29/2019. FINDINGS: There is a single intrauterine fetus in variable presentation with a normal heart rate of 162 bpm. The biparietal diameter is 2.48 cm, corresponding with 14 weeks and 2 days. The head circumference is 9.73 cm, corresponding with 14 weeks and 3 days. The abdominal circumference is 7.87 cm, corresponding with 14 weeks and 2 days. The femoral length is 1.29 cm, corresponding with 13 weeks and 6 days. The estimated gestational age based on combined ultrasound measurements is 14 weeks and 2 days and the estimated due date is 04/30/2020. The right ovary is normal in size and demonstrates normal blood flow. The left ovary is not seen. There is a normal gross anatomic fluid volume. There is a posterior placenta without evidence of placenta previa. No placental abruption or placenta previa is seen. There is a 2.2 cm right ovarian cyst. IMPRESSION: 1. Single imaging fetus with a normal heart rate and gestational age of 14 weeks and 2 days. 2. 2.2 cm right ovarian cyst. The left ovary is not seen. 3. No findings correlate with vaginal bleeding. Electronically signed by: Analilia Goodrich MD (11/02/2019 9:00 PM) [facility]
--- NOTE | 2019-11-02 21:33 | PHYS DOC ---
Past Medical History Past Medical History: Seizure, Other Additional Past Medical Histor: brain tumor Past Surgical History: No Surgical History Alcohol Use: Occasionally Drug Use: None Adult General Chief Complaint Chief Complaint: VAGINAL BLEEDING [facility] HPI Patient is a 24 year old female, accompanied by her significant other, who presents to the emergency department with complaints of blood on the toilet tissue after urinating earlier this morning. She denies any vaginal bleeding or irregular vaginal discharge. She denies any dysuria, hematuria, or increased urinary frequency. Patient states that she is currently , her last menstrual cycle was on August 05, 2019 and her estimated due date was on May 03, 2020. Patient is 5, para 3, with one miscarriage that occurred at 3 months and 2 weeks of gestation. She denies any fever, cough, nausea, vomiting, diarrhea, shortness of breath, or wheezing. Patient states she is currently having lower abdominal cramping that she currently rates a 6 out of 10 on the pain scale, she denies any alleviating or aggravating factors. Pt reports that she has had this cramping throughout the duration of this . All other ROS is neg unless otherwise noted in HPI. Review of Systems Review of Systems See Above Allergies Allergies Allergies Coded Allergies Type Severity Reaction Last Updated Verified No Known Drug Allergies 08/29/16 No Physical Exam Physical Exam See Above Constitutional: Well developed, well nourished, no acute distress, non-toxic appearance. [] HENT: Normocephalic, atraumatic, bilateral external ears normal, nose normal. [] Eyes: PERRLA, EOMI, conjunctiva normal, no discharge. [] Neck: Normal range of motion, no stridor. [] Cardiovascular:Heart rate regular rhythm, no murmur [] Lungs & Thorax: Bilateral breath sounds clear to auscultation, Respirations even and unlabored, no retractions, no respiratory distress[] Abdomen: Bowel sounds normal, soft, no tenderness, no masses, no pulsatile masses; palpable fundus 4 fingers below umbilicus. [] Skin: Warm, dry, no erythema, no rash. [] Back: No tenderness, no CVA tenderness. [] Extremities: No cyanosis, ROM intact, no edema. [] Neurologic: Alert and oriented X 3, no focal deficits noted. [] Psychologic: Affect normal, judgement normal, mood normal. [] Current Patient Data Vital Signs Vital Signs Date Time Temp Pulse Resp B/P (MAP) Pulse Ox O2 Delivery O2 Flow Rate FiO2 11/02/19 19:45 98.1 105 16 119/58 (78) 98 Room Air 98.1 Lab Values Laboratory Tests Test 11/02/19 19:47 11/02/19 19:49 Urine Collection Type Unknown Urine Color Yellow Urine Clarity Clear Urine pH 7.0 Urine Specific [place] 1.020 Urine Protein Negative mg/dL (NEG-TRACE) Urine Glucose (UA) Negative mg/dL (NEG) Urine Ketones (Stick) Negative mg/dL (NEG) Urine Blood Negative (NEG) Urine Nitrite Negative (NEG) Urine Bilirubin Negative (NEG) Urine Urobilinogen Dipstick 1.0 mg/dL (0.2 mg/dL) Urine Leukocyte Esterase Negative (NEG) Urine RBC Occ /HPF (0-2) Urine WBC 1-4 /HPF (0-4) Urine Squamous Epithelial Cells Many /LPF Urine Amorphous Sediment Present /HPF Urine Bacteria Few /HPF (0-FEW) Urine Mucus Marked /LPF POC Urine HCG, Qualitative Hcg positive (Negative) EKG EKG [] Radiology/Procedures Radiology/Procedures PROCEDURE: OB < 14 WKS EXAM: Obstetric sonogram. HISTORY: Cramping and bleeding. TECHNIQUE: Sonographic imaging of a gravid uterus was performed. COMPARISON: 08/29/2019. FINDINGS: There is a single intrauterine fetus in variable presentation with a normal heart rate of 162 bpm. The biparietal diameter is 2.48 cm, corresponding with 14 weeks and 2 days. The head circumference is 9.73 cm, corresponding with 14 weeks and 3 days. The abdominal circumference is 7.87 cm, corresponding with 14 weeks and 2 days. The femoral length is 1.29 cm, corresponding with 13 weeks and 6 days. The estimated gestational age based on combined ultrasound measurements is 14 weeks and 2 days and the estimated due date is 04/30/2020. The right ovary is normal in size and demonstrates normal blood flow. The left ovary is not seen. There is a normal gross anatomic fluid volume. There is a posterior placenta without evidence of placenta previa. No placental abruption or placenta previa is seen. There is a 2.2 cm right ovarian cyst. IMPRESSION: 1. Single imaging fetus with a normal heart rate and gestational age of 14 weeks and 2 days. 2. 2.2 cm right ovarian cyst. The left ovary is not seen. 3. No findings correlate with vaginal bleeding.[] Course & Med Decision Making Course & Med Decision Making Pertinent Labs and Imaging studies reviewed. (See chart for details) Patient is a 24-year-old female who presented to the emergency room with complaints of lower abdominal cramping and one episode of blood on the toilet tissue after wiping earlier today. Ultrasound revealed a normal intrauterine with a normal heart rate and gestational age of 14 weeks and 2 days. No findings that correlated with vaginal bleeding, there is a 2.2 cm right ovarian cyst, the left ovary was not visualized. Patient's urine was unremarkable. Previous blood bank information revealed that patient is O+. I advised patient of ultrasound report and benign urine findings. Recommend that she follows up with her SENIOR ACCOUNT CLERK next week, return to the ER if symptoms worsen. Patient verbalized an understanding of home care, medications, follow-up, and return to ED instructions and was in agreement with the plan of care. [] Dragon Disclaimer Dragon Disclaimer This electronic medical record was generated, in whole or in part, using a voice recognition dictation system. Departure Departure Impression: Primary Impression: Abdominal pain during in second trimester Disposition: 01 HOME, SELF-CARE Condition: STABLE Referrals: NO PCP (PCP) Patient Instructions: Abdominal Pain During , [id number] Additional Instructions: Follow up with your OBGyn next week. Return to the ER if symptoms worsen. SILKE REED APRN Nov 02, 2019 21:33
== END 2019-11-02 21:35 | disposition home or self-care (01) ==
LOC: ER 19:36
DX: O26.892 Other specified pregnancy related conditions, second trimester (principal); R10.33 Periumbilical pain; Z3A.14 14 weeks gestation of pregnancy
CPT/HCPCS: 76801; 81001; 81025; 99285-25

== ENCOUNTER 2020-11-24 21:44 | Emergency (ER) | payer OTHER ==
[~2020-11-24] VITALS: Ht 154.9 cm; Wt 72.7 kg
[2020-11-24 22:04] LABS: BILIRUBIN,URINE NEGATIVE (NEG); CLARITY,URINE CLEAR; COLOR,URINE YELLOW; NITRITE,URINE POSITIVE (NEG); PROTEIN,URINE NEGATIVE (NEG-TRACE)
[2020-11-24 22:08] LABS: BACTERIA,URINE MANY /HPF (0-FEW); RBC,URINE 0 /HPF (0-2); WBC,URINE OCC /HPF (0-4)
[2020-11-24 22:40] VITALS: BP 111/49
== END 2020-11-25 01:00 | disposition left against medical advice (07) ==
LOC: ER 21:44
DX: R30.9 Painful micturition, unspecified (principal); Z53.21 Procedure and treatment not carried out due to patient leaving prior to being seen by health care provider
CPT/HCPCS: 81001; 81025; 87086

== ENCOUNTER 2021-06-11 15:07 | Emergency (ER) | payer OTHER | END 2021-06-11 20:30 | disposition left against medical advice (07) | LOC: ER 15:07 | DX: R50.9 Fever, unspecified (principal); R51.9 Headache, unspecified; R06.02 Shortness of breath; R05 Cough; Z53.21 Procedure and treatment not carried out due to patient leaving prior to being seen by health care provider ==

== ENCOUNTER 2022-03-14 08:49 | Emergency (ER) | payer OTHER ==
[~2022-03-14] VITALS: Ht 154.9 cm; Wt 74.9 kg
--- NOTE | 2022-03-14 08:51 | PHYS DOC ---
Past Medical History Past Medical History: No Pertinent History, Seizure, Other Additional Past Medical Histor: brain tumor Past Surgical History: No Surgical History Smoking Status: Never Smoker Alcohol Use: None Drug Use: None Adult General Chief Complaint Chief Complaint: BACK PAIN OR INJURY [facility] Patient is a 26 year old female who presents with rectal pain. Patient has been having rectal pain over the last 24 to 48 hours. Symptoms have been worsening. She noticed a few streaks of blood on tissue. She has been having constipation as well which she describes to be a chronic complaint. Normally goes 3 to 4 days without having bowel movement and then has difficulty passing hard stools. The only medication or treatment she uses for this is drinking some sort of green juice supplement which she states normally helps. Denies abdominal pain. No laura bleeding from the rectum. Review of Systems Review of Systems Constitutional: Denies fever or chills Eyes: Denies HENT: Denies Respiratory: Denies Cardiovascular: No additional information GI: As documented in [facility] : Denies dysuria or hematuria Musculoskeletal: Denies back pain Integument: Denies rash or skin lesions Neurologic: Denies Endocrine: Denies All other systems were reviewed and found to be within normal limits, except as documented in this note. Allergies Allergies Allergies Coded Allergies Type Severity Reaction Last Updated Verified No Known Drug Allergies 03/14/22 No Physical Exam Physical Exam Constitutional: Well developed, well nourished, no acute distress, non-toxic appearance HENT: Moist mucous membranes, nares patent Eyes: PERRLA, EOMI, conjunctiva normal Neck: Normal range of motion Cardiovascular:Heart rate regular rhythm Lungs & Thorax: Normal respiratory effort Abdomen: Bowel sounds normal, soft, no tenderness, hemorrhoids are present about the anus Skin: Warm, dry, no erythema, no rash Extremities: No tenderness Neurologic: Alert and oriented X 3 Psychologic: Affect normal Current Patient Data Vital Signs Vital Signs Date Time Temp Pulse Resp B/P (MAP) Pulse Ox O2 Delivery O2 Flow Rate FiO2 03/14/22 08:55 98.0 66 16 113/59 (77) 99 Room Air 98.0 EKG EKG [] Radiology/Procedures Radiology/Procedures [] Course & Med Decision Making Course & Med Decision Making Pertinent Labs and Imaging studies reviewed. (See chart for details) ED summary: Patient seen in the emergency department for rectal pain. Physical examination was completed in the exam room with a female registered nurse present. Patient has 2 or 3 firm appearing hemorrhoids extruding from the anus. These are very painful but are soft and did not feel thrombosed today. The diagnosis is explained to her and all of her questions were answered. Plan is for discharge home and we will place her on a bowel regimen including MiraLAX and docusate. Recommended she buy some Tucks medicated pads as well and she is given prescription suppositories to treat her diagnosis. Recommend she follow- up with her primary care doctor as needed. Come back to the ER only for severely worsening or poorly controlled symptoms Dragsabi Disclaimer Kerry Disclaimer This electronic medical record was generated, in whole or in part, using a voice recognition dictation system. Departure Departure Impression: Primary Impression: Hemorrhoid Disposition: HOME / SELF CARE / HOMELESS Condition: GOOD Referrals: NO PCP (PCP) Patient Instructions: Hemorrhoids, [id number] Scripts Acetaminophen With Codeine (ACETAMINOPHEN-COD #3 TABLET) 1 Each Tablet 2 TAB PO bidprn PRN for PAIN for 4 Days, #12 TAB Prov: JEREMY YAÑEZ DO 03/14/22 Pramoxine Hcl (PROCTOFOAM) 15 Gm Foam 15 GM TP BID for 7 Days, #14 EACH Prov: JEREMY YAÑEZ DO 03/14/22 Polyethylene Glycol 3350 (MIRALAX) 17 Gm Powd.pack 1 PACKET PO DAILY for constipation for 2 Days, #20 PACKET 1 Refill Take 2 or 3 packets daily until loose stools. After that, use daily as needed Prov: JEREMY YAÑEZ DO 03/14/22 Hydrocortisone Acetate (ANUSOL-HC) 25 Mg Supp.rect 1 SUPP RC BID for 7 Days, #14 SUPP 0 Refills Prov: JEREMY YAÑEZ DO 03/14/22 Docusate Sodium (DOCUSATE SODIUM) 100 Mg Capsule 1 CAP PO BID for constipation for 7 Days, #14 CAP 0 Refills Prov: JEREMY YAÑEZ DO 03/14/22 JEREMY YAÑEZ DO March 14, 2022 08:51
[2022-03-14 09:08] VITALS: BP 113/70
[2022-03-14] MEDS ORDERED: DOCU100C28 PO (09:13)
[2022-03-14] MEDS ORDERED: POLY17PO29 PO (09:13)
[2022-03-14] MEDS ORDERED: ACET1TAB56 PO (09:13)
[2022-03-14] MEDS ORDERED: PRAM15FO5 TP (09:13)
[2022-03-14] MEDS ORDERED: HYDR25SU18 RC (09:13)
== END 2022-03-14 09:23 | disposition home or self-care (01) ==
LOC: ER 08:49
DX: K64.9 Unspecified hemorrhoids (principal)
CPT/HCPCS: 99283

== ENCOUNTER 2022-03-18 14:26 | Emergency (ER) | payer OTHER ==
[~2022-03-18] VITALS: Ht 154.9 cm; Wt 73.8 kg
[~2022-03-18 14:26] MED LIST changes: +ACET1TAB56 PO; +DOCU100C28 PO; +HYDR25SU18 RC; +POLY17PO29 PO; +PRAM15FO5 TP
[2022-03-18 15:41] LABS: BACTERIA,URINE MANY /HPF (0-FEW)
[2022-03-18 15:42] LABS: RBC,URINE 0 /HPF (0-2); WBC,URINE OCC /HPF (0-4)
--- NOTE | 2022-03-18 16:24 | PHYS DOC ---
Past Medical History Past Medical History: Seizure, Other Additional Past Medical Histor: brain tumor Past Surgical History: No Surgical History Smoking Status: Never Smoker Alcohol Use: None Drug Use: None General Adult EDM: Chief Complaint: VAGINAL PROBLEM HPI: HPI: Patient is a 26 year old female who presents with vaginal pain and foul odor today. Patient reports she has had pain related to her hemorrhoids for a few days, but this pain is different. She states the pain is exacerbated when she stands from sitting position or when she turns in "certain ways." Patient is in a monogamous relationship with her . She has delivered vaginally in the past. Patient denies abdominal pain, N/V/D, dysuria, hematuria, vaginal bleeding. Review of Systems: Review of Systems: Constitutional: Denies fever, chills or generalized weakness Eyes: Denies change in visual acuity, visual field deficits or discharge HENT: Denies ear pain, nasal congestion or sore throat Respiratory: Denies cough or shortness of breath Cardiovascular: Denies chest pain, palpitations or edema GI: Denies abdominal pain, nausea, vomiting, bloody stools or diarrhea : See HPI Musculoskeletal: Denies back pain or joint pain Integument: Denies rash or other skin lesion Neurologic: Denies headache, focal weakness or sensory changes Heart Score: C/O Chest Pain: No Allergies: Allergies: Allergies Coded Allergies Type Severity Reaction Last Updated Verified No Known Drug Allergies 03/14/22 No Physical Exam: PE: Constitutional: Well developed, well nourished, no acute distress, non-toxic appearance. HENT: Normocephalic, atraumatic, bilateral external ears normal, nose normal. Eyes: EOMI, conjunctiva normal, no discharge. Neck: Normal range of motion, no stridor. Abdomen: Bowel sounds normal, soft, no tenderness, no masses, no pulsatile masses. Genitorectal: External hemorrhoid appreciated without evidence of thrombosis or bleeding. Mons pubis and groin without lesions, rash or signs of trauma. Anterior vaginal wall shows cystocele with palpable and visible prolapse. Copious white, watery discharge with fishy odor appreciated. Skin: Warm, dry, no erythema, no rash. Back: No tenderness, no CVA tenderness. Neurologic: Alert and oriented x4, normal motor function, normal sensory function, no focal deficits noted. Current Patient Data: Labs: Laboratory Tests Test 03/18/22 15:00 03/18/22 15:27 Urine Collection Type Unknown Urine Color (Auto) Light yellow Urine Turbidity Clear Urine pH (Auto) 7.0 (<5.0-8.0) Urine Specific [place] 1.021 (1.000-1.030) Urine Protein (Auto) Negative mg/dL (Negative) Urine Glucose (Auto)(UA) Negative mg/dL (Negative) Urine Ketones (Auto) Negative mg/dL (Negative) Urine Blood (Auto) Negative (Negative) Urine Nitrite Positive (Negative) Urine Bilirubin (Auto) Negative (Negative) Urine Urobilinogen (Auto) Normal mg/dL (Normal) Urine Leukocyte Esterase (Auto) Negative (Negative) Urine RBC 0 /HPF (0-2) Urine WBC Occ /HPF (0-4) Urine Squamous Epithelial Cells Few /LPF Urine Bacteria Many /HPF (0-FEW) Urine Mucus Mod /LPF POC Urine HCG, Qualitative Hcg negative (Negative) WET PREP Final YEAST NONE SEEN TRICHOMONAS NONE SEEN CLUE CELLS CLUE CELLS PRESENT ALTERED LEON ALTERED LEON PRESENT SUGGESTIVE OF BACTERIAL VAGINOSIS SQUAMOUS EPS MODERATE Vital Signs: Vital Signs Date Time Temp Pulse Resp B/P (MAP) Pulse Ox O2 Delivery O2 Flow Rate FiO2 03/18/22 14:34 98.1 70 16 110/63 (79) 98 Room Air 98.1 Course & Med Decision Making: Course & Med Decision Making Pertinent Labs and Imaging studies reviewed. (See chart for details) Patient exam and workup today reveals UTI, BV and cystocele. UTI treated with 1g IM rocephin, BV treated with prescription for metronidazole PO, cystocele to be further evaluated and managed by urogynecology. Gynecology services here at [facility] do not offer cytocele management or repair[facility] and all of her questions were answered. Return precautions are provided. Patient understands and is agreeable to discharge plan. Kerry Disclaimer: Kerry Disclaimer: This electronic medical record was generated, in whole or in part, using a voice recognition dictation system. Departure Departure Impression: Primary Impression: Cystocele with prolapse Additional Impressions: Bacterial vaginosis Urinary tract infection Qualified Codes: N30.00 - Acute cystitis without hematuria Disposition: HOME / SELF CARE / HOMELESS Condition: STABLE Referrals: NO PCP (PCP) Patient Instructions: Bacterial Vaginosis, [id number], Cystocele Repair, Ur inary Tract Infection, [id number] Additional Instructions: Dr. Asa [facility] of [address] [address] P [phone] | F [phone] Monday-Monday 8:00-4:30PM EMERGENCY DEPARTMENT GENERAL DISCHARGE INSTRUCTIONS Thank you for coming to [facility] Emergency Department (ED) today and trusting us with you care. We trust that you had a positive experience in our Emergency Department. If you wish to speak to the department management, you may call the director at . YOUR FOLLOW UP INSTRUCTIONS ARE FOLLOWS: 1. Follow up with your primary care doctor. If you do not have a primary doctor, please ask for a resource list of physicians or clinics that may be able to assist you with follow up care. 2. The emergency provider has interpreted your imaging studies, if any were ordered. The radiology medicaid specialist also reviewed them. If there is a change in the findings, you will be notified in 48 hours when at all possible. 3. If a lab test or culture has been done, your results will be reviewed and you will be notified if you need a change in treatment. 4. Follow instructions verbalized to you and refer to the printouts if needed. ADDITIONAL INSTRUCTIONS AND INFORMATION: 1. Your care today has been supervised by a physician who is specially trained in emergency care. Many problems require more than one evaluation for a complete diagnosis and treatment. We recommend that you schedule your follow up appointment as recommended to ensure complete treatment of you illness or injury. If you are unable to obtain follow up care and continue to have a problem, or if your condition worsens, we recommend that you return to the ED. 2. We are not able to safely determine your condition over the phone nor are we able to give sound medical advice over the phone. For these safety reasons, if you call for medical advice we will ask you to come to the ED for further evaluation. 3. If you have any questions regarding these discharge instructions please call the ED at . SAFETY INFORMATION: In the interest of safety, wellness, and injury prevention; we encourage you to wear your seat belt, if you smoke; quite smoking, and we encourage family to use a protective helmet for bicycling and other sporting events that present an increased risk for head injury. IF YOUR SYMPTOMS WORSEN OR NEW SYMPTOMS DEVELOP, OR YOU HAVE CONCERNS ABOUT YOUR CONDITION; OR IF YOUR CONDITION WORSENS WHILE YOU ARE WAITING FOR YOUR FOLLOW UP APPOINTMENT; EITHER CONTACT YOUR PRIMARY CARE DOCTOR, THE PHYSICIAN WHOSE NAME AND NUMBER YOU WERE GIVEN, OR RETURN TO THE ED IMMEDIATELY. Scripts Metronidazole (METRONIDAZOLE) 500 Mg Tablet 1 TAB PO BID for 7 Days, #14 TAB 0 Refills Prov: SHANDA KLINE 03/18/22 SHANDA KLINE March 18, 2022 16:24
[2022-03-18] MEDS ORDERED: METR-34 PO (16:28)
[2022-03-18] MEDS ORDERED: cefTRIAXone IM 1 GM VIAL IM ONE (16:30)
[2022-03-18 16:56] VITALS: BP 105/60
== END 2022-03-18 17:00 | disposition home or self-care (01) ==
LOC: ER 14:26
DX: N76.0 Acute vaginitis (principal); B96.89 Other specified bacterial agents as the cause of diseases classified elsewhere; N30.00 Acute cystitis without hematuria; N81.10 Cystocele, unspecified
CPT/HCPCS: 81001; 81025; 87077; 87086; 87186; 96372; 99283; J0696; Q0111